=== PATIENT | male | born 1960 | race African-American/Black ===

== ENCOUNTER → 2017-01-06 | Outpatient (CLI) | payer OTHER ==
[2017-01-06 10:07] LABS: ALKALINE PHOSPHATASE 56 U/L (45-117); ALT (GPT) 31 U/L (12-78); ANION GAP 7 MEQ/L (5-15); AST (GOT) 33 U/L (15-37); BICARBONATE 27.4 MEQ/L (21.0-32.0); BLOOD UREA NITROGEN 10 MG/DL (7-18); CHLORIDE 107 MEQ/L (98-107); FREE T4 1.07 NG/DL (0.76-1.46); GLOMERULAR FILTRATION RATE 115 ML/MIN (>89); GLUCOSE,FASTING 131 MG/DL (74-99); HDL CHOLESTEROL 42.7 MG/DL (40.0-60.0); LDL CHOLESTEROL 74 MG/DL (0-99); POTASSIUM 4.2 MEQ/L (3.5-5.1); SODIUM (NA) 141 MEQ/L (136-145); TOTAL BILIRUBIN ADULT 0.4 MG/DL (0.2-1.0)
== END ==
LOC: CLAB 08:59
PROVIDERS: ATTEND Family Medicine
DX: E78.5 Hyperlipidemia, unspecified (principal); E04.2 Nontoxic multinodular goiter
CPT/HCPCS: 36415; 80053; 80061; 84439; 84443

== ENCOUNTER → 2017-01-20 | Outpatient (CLI) | payer OTHER ==
[2017-01-20 12:00] LABS: MEAN CELL VOLUME 68.4 FL (80.0-100.0); MEAN CORPUSCULAR HGB CONC 32.1 % (32.0-36.0); PLATELET COUNT 242 TH/MM3 (150-450); RED BLOOD COUNT 5.11 MIL/MM3 (4.50-5.90); RED CELL DISTRIBUTION WIDTH 18.1 % (11.6-17.2); WHITE BLOOD COUNT 9.2 TH/MM3 (4.0-11.0)
[2017-01-20 12:01] LABS: REVIEW FLAG FINAL
== END ==
LOC: CLAB 11:20
PROVIDERS: ATTEND Family Medicine
DX: R53.83 Other fatigue (principal); Z12.5 Encounter for screening for malignant neoplasm of prostate
CPT/HCPCS: 36415; 82607; 82746; 84153; 84403; 85027

== ENCOUNTER → 2017-02-02 | Day surgery (SDC) | payer OTHER ==
[~2017-02-02] MED LIST: BUPIVACAINE HCL PF 0.5% 30 ML VIAL ONE; LACTATED RINGER'S 1000 ML INJ 1,000 ML ONE; LIDOCAINE HCL 1% PF 30 ML VIAL ONE; MIDAZOLAM HCL 2 MG/2 ML VIAL ONE; PROPOFOL 200 MG/20 ML AMP IV ONE; ceFAZolin 2 GM PREMIX 50 ML ONE
--- NOTE | 2017-02-05 17:32 | MP ---
cc: IAN VICKERS DPM DATE OF SURGERY: 02/02/2017. PREOPERATIVE DIAGNOSIS: Left second toe osteomyelitis. POSTOPERATIVE DIAGNOSIS: Left second toe osteomyelitis. OPERATION: Left second toe amputation at the metatarsophalangeal joint with primary closure. SURGEON: Ian Vickers DPM. COMPLICATIONS: No complications. SPECIMEN SENT: Left second digit to pathology. ESTIMATED BLOOD LOSS: 3 cc. ANESTHESIA: Light sedation with 10 cc of 0.5 Marcaine plain and 1% lidocaine plain injected preoperatively. TOURNIQUET TIME: Left ankle tourniquet at 250 mmHg for nine minutes. INDICATIONS FOR THE PROCEDURE: This patient is a 56-year-old diabetic male who sustained an ulcer on the medial side of the second digit and developed osteomyelitis. The patient was requiring surgical intervention due to problems at this time due to risk of sepsis and inability of the antibiotics to get rid of osteomyelitis. The patient understands the procedure as well as the potential risks and complications involved. All questions were answered. The risks and benefits were discussed at length. Consent was obtained preoperatively. DESCRIPTION OF THE PROCEDURE IN DETAIL: The patient was brought to the operating room and placed on the operating room table in the supine position. A pneumatic ankle tourniquet was placed about the left ankle. The left foot was anesthetized with 10 cc of 0.5 Marcaine plain and 1% lidocaine plain. When the patient was thoroughly sedated, the foot was scrubbed, prepped and draped in the usual sterile fashion. First attention was directed to make a fish mouth incision distal to the metatarsophalangeal joint. Care was taken to avoid all vital structures. All bleeders were cauterized. Once at the metatarsophalangeal joint deep, sharp dissection was used to disarticulate the digit. The digit was sent to pathology for further evaluation. The area was copiously flushed and again bleeders were cauterized after copious irrigation of 500 mL of saline. Vicryl was used to close the subcutaneous tissue and nylon was used to close the skin. Adaptic, 4 x 4, Kerlix and PATRICK was used to wrap the foot. The patient handled anesthesia well. SAMY Nicolas/KELLY Ni: 02/02/2017/10:38 AM /5:24 PM JOSÉ MANUEL
== END | disposition home or self-care (01) ==
LOC: ESDC 08:40
PROVIDERS: ATTEND Podiatrist Foot & Ankle Surgery
DX: M86.172 Other acute osteomyelitis, left ankle and foot (principal); E11.9 Type 2 diabetes mellitus without complications
CPT/HCPCS: 01480; 28820; 82948; 88305; 88311; J0690; J2250; J3010; J7120

== ENCOUNTER 2017-09-28 11:33 | Observation (INO) | payer OTHER ==
[~2017-09-28] VITALS: Ht 180.3 cm; Wt 110.2 kg
[2017-09-28 12:44] LABS: AUTOMATED NEUTROPHIL # 5.1 TH/MM3 (1.8-7.7); BASOPHIL # 0.1 TH/MM3 (0-0.2); BASOPHIL % 0.7 % (0.0-2.0); EOSINOPHIL # 0.5 TH/MM3 (0-0.4); HEMATOCRIT 34.5 % (39.0-51.0); HEMO FLAGS DIFF FINAL; LYMPH % 28.4 % (9.0-44.0); LYMPHOCYTE # 2.5 TH/MM3 (1.0-4.8); MEAN CELL VOLUME 70.5 FL (80.0-100.0); MEAN CORPUSCULAR HEMOGLOBIN 23.1 PG (27.0-34.0); MEAN CORPUSCULAR HGB CONC 32.8 % (32.0-36.0); MONO % 6.2 % (0.0-8.0); NEUT % 58.7 % (16.0-70.0); PLATELET COUNT 267 TH/MM3 (150-450); RED CELL DISTRIBUTION WIDTH 17.5 % (11.6-17.2); WHITE BLOOD COUNT 8.7 TH/MM3 (4.0-11.0)
[2017-09-28] MEDS ORDERED: POVIDONE IODINE 5% (ANTISEPSIS KIT) 4 APPLICATIONS EACH NARE PRN (12:45)
[2017-09-28] MEDS ORDERED: LACTATED RINGER'S 1000 ML IV PRN (12:45)
[2017-09-28] MEDS ORDERED: SODIUM CHLORID 0.9% 500 ML IV PRN (12:45)
[2017-09-28] MEDS ORDERED: CHLORHEXIDINE GLUCONATE 2 % 1 PACK (2 CLOTHS) TOPICAL PRN (12:45)
[2017-09-28] MEDS ORDERED: METOPROLOL TARTRATE 25 MG TAB PO PRN (12:45)
[2017-09-28] MEDS ORDERED: PRAV10TA PO (12:48)
[2017-09-28] MEDS ORDERED: NOVOLOGMXP SQ (12:48)
[2017-09-28] MEDS ORDERED: LISI-519 PO (12:48)
[2017-09-28] MEDS ORDERED: METF1000 PO (12:48)
[2017-09-28] MEDS ORDERED: MOBI7.5T PO (12:48)
[2017-09-28] MEDS ORDERED: CENTCHW4 CHEW (12:49)
[2017-09-28] MEDS ORDERED: TYLE325T PO (12:49)
[2017-09-28 13:03] LABS: BICARBONATE 27.1 MEQ/L (21.0-32.0); POTASSIUM 3.8 MEQ/L (3.5-5.1)
[2017-09-28] MEDS ORDERED: BUPIVACAINE/EPINEPHRINE 0.5% PF 30 ML VIAL ONE ×2 (13:41)
[2017-09-28] MEDS ORDERED: ACETAMINOPHEN 1000 MG/100 ML 100 ML IV ONE (13:51)
[2017-09-28] MEDS ORDERED: DO NOT ADM ANY ANTICOAGULANT DRUGS PRN (16:57)
[2017-09-28] MEDS: ACETAMINOPHEN 1000 MG/100 ML 100 ML IV SCH ×2 (17:00→22:54)
[2017-09-28] MEDS ORDERED: SODIUM CHLORIDE 0.9% FLUSH 10 ML FLUSH IV FLUSH PRN (17:00)
[2017-09-28] MEDS ORDERED: ONDANSETRON HCL 4 MG/2 ML VIAL IV PUSH PRN (17:00)
[2017-09-28] MEDS ORDERED: ACETAMINOPHEN 325 MG TAB PO PRN (17:00)
[2017-09-28] MEDS ORDERED: Post-op Orders (for Pharmacy) XX ONE (17:00)
[2017-09-28] MEDS ORDERED: *morphine SULFATE 8 MG/ML PERIprocedure ONLY ONE ×2 (17:05→17:47)
--- NOTE | 2017-09-28 17:07 | HHI.PR ---
cc: Sanford Capps MD Immediate Post Op Note Procedure Date: Sep 28, 2017 Pre Op Diagnosis: (1) Thyroid goiter (2) Dysphagia Post Op Diagnosis: (1) Dysphagia (2) Thyroid goiter Surgeon: Sanford Capps Electric Meter Repairer Helper(s): Please refer to our records Procedure: Total thyroidectomy with neuro monitoring Findings: Large thyroid goiter left side larger than the right measuring 10-12 cm Specimen(s) removed: thyroid Estimated blood loss: 100 Anesthesia: General IVF Patient to: PACU Patient Condition: Good Implant/Devices: SEE IMPLANT LOG (if applicable) Date/Time of Procedure: SEE SURGICAL CARE RECORD Sanford Capps MD Sep 28, 2017 17:07
[2017-09-28] MEDS ORDERED: *HYDROmorphone PF 1 MG VIAL PERIprocedural Use ONLY ONE (17:57)
[2017-09-28] MEDS: metFORMIN HCL 500 MG TAB PO SCH (18:00)
[2017-09-28] MEDS: LACTATED RINGER'S 1000 ML INJ 1,000 ML IV SCH (18:10)
[2017-09-28] MEDS ORDERED: *diphenhydrAMINE HCL 50 MG/ML VIAL PERIprocedural Use ONLY ONE ×2 (18:27→18:58)
[2017-09-28] MEDS ORDERED: oxyCODONE/ACETAMINOPHEN 5 MG/325 MG TAB PO PRN (19:00)
[2017-09-28 20:00] VITALS: BP 170/101; PULSE 96; RESP 20; TEMP 96.8; O2SAT 95
[2017-09-28] MEDS: SODIUM CHLORIDE 0.9% FLUSH 10 ML FLUSH IV FLUSH SCH (20:56)
[2017-09-28] MEDS: MELOXICAM 7.5 MG TAB PO SCH (20:56)
[2017-09-28] MEDS: INSULIN ASPAR PROT 70/30 1,000 UNITS/10 ML VIAL SQ SCH (20:57)
[2017-09-28 21:09] VITALS: O2SAT 95
[2017-09-28] MEDS: oxyCODONE/ACETAMINOPHEN 10 MG/325 MG TAB PO PRN (23:02)
[2017-09-29] VITALS: BP 172/95; PULSE 94; RESP 20; TEMP 97.2; O2SAT 96
[2017-09-29] MEDS: LACTATED RINGER'S 1000 ML INJ 1,000 ML IV SCH (02:55)
[2017-09-29] MEDS: oxyCODONE/ACETAMINOPHEN 10 MG/325 MG TAB PO PRN ×2 (03:49→09:54)
[2017-09-29 04:00] VITALS: BP 131/93; PULSE 87; RESP 20; TEMP 97.3; O2SAT 96
[2017-09-29] MEDS: ACETAMINOPHEN 1000 MG/100 ML 100 ML IV SCH ×2 (04:54→12:12)
--- NOTE | 2017-09-29 07:02 | HHI.PR ---
cc: Sanford Capps MD Subjective Subjective Notes im doing good no sob normal voice Objective Vitals/I&O Vital Signs Date Time Temp Pulse Resp B/P (MAP) Pulse Ox O2 Delivery O2 Flow Rate FiO2 09/29/17 05:24 18 09/29/17 04:00 97.3 87 131/93 (106) 96 09/28/17 21:09 Nasal Cannula 2.00 Labs Laboratory Tests Test 09/28/17 12:30 White Blood Count 8.7 Red Blood Count 4.90 Hemoglobin 11.3 Hematocrit 34.5 Mean Corpuscular Volume 70.5 Mean Corpuscular Hemoglobin 23.1 Mean Corpuscular Hemoglobin Concent 32.8 Red Cell Distribution Width 17.5 Platelet Count 267 Mean Platelet Volume 7.3 Neutrophils (%) (Auto) 58.7 Lymphocytes (%) (Auto) 28.4 Monocytes (%) (Auto) 6.2 Eosinophils (%) (Auto) 6.0 Basophils (%) (Auto) 0.7 Neutrophils # (Auto) 5.1 Lymphocytes # (Auto) 2.5 Monocytes # (Auto) 0.5 Eosinophils # (Auto) 0.5 Basophils # (Auto) 0.1 CBC Comment DIFF FINAL Differential Comment Blood Urea Nitrogen 13 Creatinine 0.74 Random Glucose 67 Calcium Level 9.3 Sodium Level 142 Potassium Level 3.8 Chloride Level 109 Carbon Dioxide Level 27.1 Anion Gap 6 Estimat Glomerular Filtration Rate 133 Cardiovascular: Regular Lungs: Clear Wound Wound : Wound Location: Neck Appearance: Clean & Dry Dressing: Dry (mild swelling neck (expected)) A/P Problem List: (1) S/P thyroidectomy ICD Codes: E89.0 - Postprocedural hypothyroidism (2) Thyroid goiter ICD Codes: E04.9 - Nontoxic goiter, unspecified Assessment and Plan 57 post op thyroidectomy will start po plan to dc today if clinically stable fu my office on oct 05 Discharge Planning possible today if clinically stable Sanford Capps MD Sep 29, 2017 07:02
[2017-09-29 08:00] VITALS: BP 146/90; PULSE 82; RESP 17; TEMP 97.5; O2SAT 98
--- NOTE | 2017-09-29 08:02 | MP ---
cc: ANDREW CAPPS M.D. DATE OF SURGERY 09/28/2017 PREOPERATIVE DIAGNOSES Large goiter POSTOPERATIVE DIAGNOSIS Large goiter PROCEDURE Total thyroidectomy with use of intraoperative neuro monitoring of recurrent laryngeal nerve. ANESTHESIA General SURGEON Dr. Capps INDICATIONS This is a pleasant 57-year-old gentleman who has a fairly sizable goiter causing symptoms. Plans were made for above. PROCEDURE The patient taken to the operating room, placed in the supine position. After endotracheal anesthesia, his neck was is prepped with Betadine. We make a curvilinear incision in the neck and dissect down through the skin and subcutaneous tissue incising the platysma muscle. Superior and inferior flaps were made. It is noted that his thyroid is quite large. We enter the strap muscle in the midline, retracted medially on both sides. We first tackled the smaller of the large lobe on the right side by taking the middle thyroidal vein down with a harmonic scalpel, the inferior superior thyroidal vessels with a harmonic scalpel. It is noted that gland is quite large. The rest of the dissection is carried out with blunt dissection using Kitner's and the electrocautery device. We retract the gland superiorly to strip this away from the trachea. This has displaced the trachea somewhat. Elevating up towards the midline, we then were able identify the recurrent laryngeal nerve quite clearly and push it out of the way to further dissect the large thyroid off the trachea with a combination of electrocautery device and the harmonic scalpel. Because of the size of this gland, we amputated at the isthmus and marked the suture at the superior aspect of the right lobe. It is somewhat bi-lobulated. We then place a Ray-Jaimee in the right neck to assure hemostasis. We then directed our attention to the left side. A similar dissection is carried, however, this has doubled in size and displaced much posterior. We take the middle thyroidal vein down by Harmonic scalpel and the superior and inferior thyroidal vessels. We retract the thyroid up medially somewhat caught under the strap muscles, but with gentle traction, we were able to retract this up into the field, identifying the recurrent laryngeal nerve on the left side clearly visually and also with the neuro monitoring. We then take the harmonic scalpel and dissect off the small vessels all from the trachea and passed the specimen off labeled as a left lobe. It is much larger and again the right lobe has the suture attached. We irrigate copiously. Hemostasis is assured. Again, the glans were quite displaced. The parathyroid glands I could not identify as I suspect they are gravely displaced from the growth of this large goiter. Some may have been attached to the gland, but I could not identify either on the right or left-sided. We then irrigate copiously. Hemostasis assured with Sarkis. After appropriate time watching, there is excellent hemostasis. We then close the strap muscles in the midline with a 2-0 Vicryl. The platysma was closed with a 3-0 Vicryl and skin is closed with a 4-0 Vicryl. Steri-Strips applied. Sterile bandage applied. The patient was extubated and appeared to have a normal voice. Because of the extent of the dissection, we will plan on the overnight observation. MD ANDREA Cardenas/MIGUEL /8:24 PM /7:49 AM
[2017-09-29] MEDS ORDERED: LISINOPRIL 5 MG TAB PO SCH (09:00)
[2017-09-29] MEDS ORDERED: MULTIVITAMINS/MINERALS THERAPEUTIC TAB PO SCH (09:00)
[2017-09-29] MEDS ORDERED: PRAVASTATIN SOD 10 MG TAB PO SCH (09:00)
[2017-09-29] MEDS ORDERED: PANTOPRAZOLE SOD 20 MG DELAYED RELEASE TAB PO SCH (09:00)
[2017-09-29] MEDS ORDERED: OXYC1TAB36 PO (09:14)
[2017-09-29] MEDS ORDERED: PERC7.5T13 PO (10:53)
[2017-09-29] MEDS ORDERED: LEVO.125 PO (11:38)
[2017-09-29 12:00] VITALS: BP 146/89; PULSE 80; RESP 16; TEMP 97.6; O2SAT 100
[2017-09-29] MEDS: MELOXICAM 7.5 MG TAB PO SCH (12:13)
[2017-09-29] MEDS: metFORMIN HCL 500 MG TAB PO SCH (12:13)
[2017-09-29] MEDS: SODIUM CHLORIDE 0.9% FLUSH 10 ML FLUSH IV FLUSH SCH (12:14)
[2017-09-29] MEDS: INSULIN ASPAR PROT 70/30 1,000 UNITS/10 ML VIAL SQ SCH (12:15)
[2017-09-29] MEDS ORDERED: diphenhydrAMINE HCL 25 MG CAP PO ONE (14:30)
--- NOTE | 2017-09-30 12:24 | EKG ---
Date Performed: 09/28/2017 Time Performed: 12:14:51 PTAGE: 57 years EKG: Sinus rhythm NORMAL ECG NO PREVIOUS TRACING DOCTOR: Mony Flores Interpretating Date/Time 09/30/2017 12:23:42
== END 2017-09-29 15:02 | disposition home or self-care (01) ==
LOC: HSDC 11:33 → HSDI 17:04 → N07B 19:45
PROVIDERS: ADMIT Surgery; ATTEND Surgery
DX: E04.2 Nontoxic multinodular goiter (principal); R13.10 Dysphagia, unspecified; E89.0 Postprocedural hypothyroidism; I12.9 Hypertensive chronic kidney disease with stage 1 through stage 4 chronic kidney disease, or unspecified chronic kidney disease; N18.9 Chronic kidney disease, unspecified; E11.22 Type 2 diabetes mellitus with diabetic chronic kidney disease; E78.5 Hyperlipidemia, unspecified; E66.9 Obesity, unspecified
CPT/HCPCS: 00320; 60240; 80048; 82948; 85025; 88307; 93005; 94150; 96361; 96365; 96372; G0378; J0131; J1170; J1200; J1815; J2270; J7120

== ENCOUNTER → 2017-10-12 | Outpatient (CLI) | payer OTHER ==
[~2017-10-12] MED LIST changes: -BUPIVACAINE HCL PF 0.5% 30 ML VIAL ONE; +CENTCHW4 CHEW; -LACTATED RINGER'S 1000 ML INJ 1,000 ML ONE; +LEVO.125 PO; -LIDOCAINE HCL 1% PF 30 ML VIAL ONE; +LISI-519 PO; +METF1000 PO; -MIDAZOLAM HCL 2 MG/2 ML VIAL ONE; +MOBI7.5T PO; +NOVOLOGMXP SQ; +PERC7.5T13 PO; +PRAV10TA PO; -PROPOFOL 200 MG/20 ML AMP IV ONE; -ceFAZolin 2 GM PREMIX 50 ML ONE
[2017-10-12 10:40] LABS: ALBUMIN 4.2 GM/DL (3.4-5.0); ALT (GPT) 35 U/L (12-78); AST (GOT) 24 U/L (15-37); BICARBONATE 26.3 MEQ/L (21.0-32.0); BLOOD UREA NITROGEN 20 MG/DL (7-18); CALCIUM 9.2 MG/DL (8.5-10.1); CHLORIDE 107 MEQ/L (98-107); CHOLESTEROL 156 MG/DL (120-200); GLOMERULAR FILTRATION RATE 94 ML/MIN (>89); GLUCOSE,FASTING 57 MG/DL (74-99); SODIUM (NA) 142 MEQ/L (136-145)
[2017-10-12 10:48] LABS: ALKALINE PHOSPHATASE 57 U/L (45-117); CHOLESTEROL/ HDL RATIO 3.87 RATIO; FREE T4 1.24 NG/DL (0.76-1.46); HDL CHOLESTEROL 40.3 MG/DL (40.0-60.0); LDL CHOLESTEROL 97 MG/DL (0-99); TOTAL BILIRUBIN ADULT 0.4 MG/DL (0.2-1.0); TOTAL PROTEIN 8.2 GM/DL (6.4-8.2); TRIGLYCERIDES 94 MG/DL (42-150)
== END ==
LOC: CLAB 09:53
PROVIDERS: ATTEND Family Medicine
DX: E78.5 Hyperlipidemia, unspecified (principal); E03.9 Hypothyroidism, unspecified
CPT/HCPCS: 36415; 80053; 80061; 84439; 84443

== ENCOUNTER 2017-10-25 15:15 | Emergency (ER) | payer OTHER ==
[2017-10-25 16:22] VITALS: BP 111/59; PULSE 100; RESP 20; TEMP 99; O2SAT 97
--- NOTE | 2017-10-25 19:29 | PD ---
HPI Chief Complaint: Skin Problem Time Seen by Provider: 19:03 Travel History International Travel<30 days: No Contact w/Intl Traveler<30days: No Traveled to known affect area: No History of Present Illness HPI So 57-year-old man who presents to the emergency department complaining of itching rash. He had a thyroidectomy done of a mass of goiter about 2 weeks ago. He states that since he got home, after starting his Synthroid, he's been experience generalized pruritus was generalized urticaria. He started taking Benadryl, and then again he sells primary doctor this morning was given a shot of steroids and parenteral Benadryl and started on a Medrol Dosepak, despite this he said worsening symptoms or worsening itching and so he was brought to the emergency department. He otherwise had been feeling generally well and healthy. No other complaints. History Past Medical History Narrative Medical Hypertension Diabetes Tetanus Vaccination: < 5 Years Social History Alcohol Use: No Tobacco Use: No Allergies-Medications (Allergen,Severity, Reaction): Coded Allergies: hydrocodone (Verified Allergy, Mild, itching, 10/25/17) Reported Meds & Prescriptions Reported Meds & Active Scripts Active Synthroid (Levothyroxine Sodium) 125 Mcg Tab 125 Mcg PO DAILY Reported Novolog Mix 70-30 Inj (Insulin Aspart Prota 70%/Aspart 30%) 1,000 Unit/10 Ml Vial 42 Units SQ BID Pravastatin 10 Mg Tab 5 Mg PO DAILY Centrum (Multiple Vitamins W/ Minerals) 1 Chew 1 Tab CHEW DAILY Mobic (Meloxicam) 7.5 Mg Tab 7.5 Mg PO BID Lisinopril 5 Mg Tab 5 Mg PO DAILY Metformin (Metformin HCl) 1,000 Mg Tab 1,000 Mg PO BIDPC Review of Systems Except as stated in HPI: all other systems reviewed are Neg Physical Exam Narrative GENERAL: Well-appearing 57-year-old man, no acute distress. SKIN: Focused skin assessment warm/dry. Dark skin. Some mild diffuse urticaria is difficult to detect what appears to be present. Some secondary excoriations. HEAD: Atraumatic. Normocephalic. EYES: Pupils equal and round. No scleral icterus. No injection or drainage. ENT: No nasal bleeding or discharge. Mucous membranes pink and moist. NECK: Trachea midline. No JVD. CARDIOVASCULAR: Regular rate and rhythm. No murmur appreciated. RESPIRATORY: No accessory muscle use. Clear to auscultation. Breath sounds equal bilaterally. GASTROINTESTINAL: Abdomen soft, non-tender, nondistended. Hepatic and splenic margins not palpable. MUSCULOSKELETAL: No obvious deformities. Data Data Last Documented VS Vital Signs Date Time Temp Pulse Resp B/P (MAP) Pulse Ox O2 Delivery O2 Flow Rate FiO2 10/25/17 20:53 98.4 98 16 150/89 (109) 97 Room Air Orders Orders Complete Blood Count With Diff (10/25/17:22) Comprehensive Metabolic Panel (10/25/17:22) Iv Access Insert/Monitor (10/25/17:) Methylprednisolone So Succ Inj (Solumedr (10/25/17 19:30) Diphenhydramine Inj (Benadryl Inj) (10/25/17 19:30) Labs Laboratory Tests Test 10/25/17 19:45 White Blood Count 6.9 TH/MM3 Red Blood Count 4.86 MIL/MM3 Hemoglobin 10.8 GM/DL Hematocrit 36.4 % Mean Corpuscular Volume 74.9 FL Mean Corpuscular Hemoglobin 22.2 PG Mean Corpuscular Hemoglobin Concent 29.7 % Red Cell Distribution Width 16.7 % Platelet Count 283 TH/MM3 Mean Platelet Volume 7.9 FL Neutrophils (%) (Auto) 88.1 % Lymphocytes (%) (Auto) 11.3 % Monocytes (%) (Auto) 0.4 % Eosinophils (%) (Auto) 0.1 % Basophils (%) (Auto) 0.1 % Neutrophils # (Auto) 6.1 TH/MM3 Lymphocytes # (Auto) 0.8 TH/MM3 Monocytes # (Auto) 0.0 TH/MM3 Eosinophils # (Auto) 0.0 TH/MM3 Basophils # (Auto) 0.0 TH/MM3 CBC Comment AUTO DIFF Differential Comment AUTO DIFF CONFIRMED Ovalocytes 2+ Blood Urea Nitrogen 12 MG/DL Creatinine 0.92 MG/DL Random Glucose 216 MG/DL Total Protein 7.7 GM/DL Albumin 3.7 GM/DL Calcium Level 8.7 MG/DL Alkaline Phosphatase 59 U/L Aspartate Amino Transf (AST/SGOT) 26 U/L Alanine Aminotransferase (ALT/SGPT) 35 U/L Total Bilirubin 0.4 MG/DL Sodium Level 140 MEQ/L Potassium Level 4.2 MEQ/L Chloride Level 107 MEQ/L Carbon Dioxide Level 25.3 MEQ/L Anion Gap 8 MEQ/L Estimat Glomerular Filtration Rate 103 ML/MIN [facility] Medical Decision Making Medical Screen Exam Complete: Yes Emergency Medical Condition: Yes Interpretation(s) LABS: CBC remarkable for mild anemia. CMP remarkable for mildly elevated glucose. Differential Diagnosis Urticaria and hives, allergic reaction, other Narrative Course Medical decision making 57 year old man presents emergency Department with what appears to be urticaria and hives. Some thought this may be related to his medication. Switch him to the formulation. We'll give him a dose of parenteral steroids, antihistamines, continue Medrol Dosepak as prescribed. Looks well. No indications for admission. Likely discharge. Diagnosis Primary Impression: Pruritus Additional Instructions: Change thyroid medicine as directed by your primary physician. Take Medrol Dosepak as prescribed. Return to emergent part for any chest pain or trouble breathing. Follow-up with your primary doctor in the next 24-48 hours. Disposition: 01 DISCHARGE HOME Condition: Stable Jamar Burch MD Oct 25, 2017 19:29
[2017-10-25] MEDS ORDERED: diphenhydrAMINE HCL 50 MG/ML VIAL IV PUSH ONE (19:30)
[2017-10-25] MEDS ORDERED: methylPREDNISolone SOD SUCC 125 MG/2 ML VIAL IV PUSH ONE (19:30)
[2017-10-25 19:59] LABS: CHLORIDE 107 MEQ/L (98-107); SODIUM (NA) 140 MEQ/L (136-145)
[2017-10-25 20:03] LABS: ALBUMIN 3.7 GM/DL (3.4-5.0); BICARBONATE 25.3 MEQ/L (21.0-32.0); BLOOD UREA NITROGEN 12 MG/DL (7-18); CALCIUM 8.7 MG/DL (8.5-10.1); GLUCOSE,RANDOM 216 MG/DL (74-106)
[2017-10-25 20:04] LABS: AUTOMATED NEUTROPHIL # 6.1 TH/MM3 (1.8-7.7); BASOPHIL % 0.1 % (0.0-2.0); EOSINOPHIL % 0.1 % (0.0-4.0); HEMATOCRIT 36.4 % (39.0-51.0); HEMOGLOBIN 10.8 GM/DL (13.0-17.0); LYMPH % 11.3 % (9.0-44.0); LYMPHOCYTE # 0.8 TH/MM3 (1.0-4.8); MEAN CELL VOLUME 74.9 FL (80.0-100.0); MEAN CORPUSCULAR HEMOGLOBIN 22.2 PG (27.0-34.0); MEAN PLATELET VOLUME 7.9 FL (7.0-11.0); MONO % 0.4 % (0.0-8.0); NEUT % 88.1 % (16.0-70.0); PLATELET COUNT 283 TH/MM3 (150-450); RED BLOOD COUNT 4.86 MIL/MM3 (4.50-5.90); RED CELL DISTRIBUTION WIDTH 16.7 % (11.6-17.2); WHITE BLOOD COUNT 6.9 TH/MM3 (4.0-11.0)
[2017-10-25 20:06] LABS: ALT (GPT) 35 U/L (12-78); AST (GOT) 26 U/L (15-37); CREATININE 0.92 MG/DL (0.60-1.30); GLOMERULAR FILTRATION RATE 103 ML/MIN (>89)
[2017-10-25 20:08] LABS: TOTAL BILIRUBIN ADULT 0.4 MG/DL (0.2-1.0); TOTAL PROTEIN 7.7 GM/DL (6.4-8.2)
[2017-10-25 20:09] LABS: ALKALINE PHOSPHATASE 59 U/L (45-117)
[2017-10-25 20:13] LABS: MEAN CORPUSCULAR HGB CONC 29.7 % (32.0-36.0)
[2017-10-25 20:53] VITALS: BP 150/89; PULSE 98; RESP 16; TEMP 98.4; O2SAT 97
[2017-10-25] MEDS ORDERED: NOVOLOGMXP SQ (20:59)
[2017-10-25] MEDS ORDERED: PRAV10TA PO (20:59)
[2017-10-25 21:01] LABS: OVALOCYTES 2+ (NORMAL)
[2017-10-25 22:00] VITALS: BP 156/93; TEMP 98.4
== END 2017-10-25 22:02 | disposition home or self-care (01) ==
LOC: PHED 15:15
DX: L50.9 Urticaria, unspecified (principal); E11.9 Type 2 diabetes mellitus without complications; I10 Essential (primary) hypertension; Z79.4 Long term (current) use of insulin; Z79.899 Other long term (current) drug therapy; Z88.5 Allergy status to narcotic agent
CPT/HCPCS: 80053; 85025; 96374; 96375; 99284; J1200; J2930

== ENCOUNTER → 2018-04-12 | Outpatient (CLI) | payer OTHER ==
[~2018-04-12] MED LIST changes: -PERC7.5T13 PO
[2018-04-12 11:11] LABS: ALKALINE PHOSPHATASE 45 U/L (45-117); FREE T4 1.07 NG/DL (0.76-1.46); TOTAL BILIRUBIN ADULT 0.3 MG/DL (0.2-1.0); TOTAL PROTEIN 7.5 GM/DL (6.4-8.2)
[2018-04-12 11:20] LABS: ALBUMIN 4.1 GM/DL (3.4-5.0); ALT (GPT) 28 U/L (12-78); AST (GOT) 29 U/L (15-37); BICARBONATE 23.4 MEQ/L (21.0-32.0); BLOOD UREA NITROGEN 10 MG/DL (7-18); CALCIUM 8.4 MG/DL (8.5-10.1); CHLORIDE 114 MEQ/L (98-107); CHOLESTEROL 156 MG/DL (120-200); GLOMERULAR FILTRATION RATE 106 ML/MIN (>89); GLUCOSE,FASTING 61 MG/DL (74-99); LDL CHOLESTEROL 90 MG/DL (0-99); SODIUM (NA) 145 MEQ/L (136-145); TRIGLYCERIDES 133 MG/DL (42-150)
== END ==
LOC: CLAB 10:15
PROVIDERS: ATTEND Family Medicine
DX: E03.9 Hypothyroidism, unspecified (principal); E78.5 Hyperlipidemia, unspecified
CPT/HCPCS: 36415; 80053; 80061; 84439; 84443